=== PATIENT | male | born 1965 | race Caucasian/White ===

== ENCOUNTER 2016-07-24 18:21 | Emergency (ER) | payer BC ==
[2016-07-24 18:36] VITALS: BP 132/92
--- NOTE | 2016-07-24 19:12 | EDM.PDOC ---
ED HPI ENT - General Chief Complaint: ENT Problem Stated Complaint: FB IN EYE Time Seen by Provider: 07/24/16 18:57 Source of Information: Reports: Patient, RN notes reviewed - History of Present Illness INITIAL COMMENTS - FREE TEXT/NARRATIVE: 51-year-old male comes in with foreign body sensation left eye. He was in the [employer] parking lot and felt something blow into his eye. This resulted in foreign body sensation of the lateral aspect of his left eye. This appeared to be under his left upper eyelid. The discomfort was worse with blinking. During or after having his visual acuity checked here in the ED the discomfort completely went away. He does not wear contacts. No other injury or other unusual symptomatology. - Related Data Allergies/ADRs: Allergies Allergy/AdvReac Type Severity Reaction Status Date / Time No Known Allergies Allergy Verified 07/24/16 18:34 Home Meds: Home Meds Multivit-Min/FA/Lycopen/Lutein [Centrum Silver Men Tablet] 1 tab PO DAILY [History] [place]-3 Fatty Acids [Fish Oil] 1 tab PO DAILY 07/24/16 [History] Past Medical History Musculoskeletal History: Reports: Other (see below) Other Musculoskeletal History: ACL left Social & Family History - Tobacco Use Smoking Status *Q: Never Smoker Second Hand Smoke Exposure: No - Caffeine Use Caffeine Use: Reports: Soda - Recreational Drug Use Recreational Drug Use: No ED ROS ENT - Review of Systems Review Of Systems: See Below Constitutional: Denies: fever, chills HEENT: Reports: Eye pain (Left eye discomfort, foreign body sensation now better ) Respiratory: Reports: No Symptoms Cardiovascular: Reports: No symptoms GI/Abdominal: Denies: Nausea, Vomiting Musculoskeletal: Reports: no symptoms Skin: Denies: rash Neurological: Denies: Headache ED EXAM, ENT - Physical Exam Exam: See Below General Appearance: alert Eye Exam: bilateral eye: PERRL, other (no foreign body visible at time of my exam, cornea looks really good, no abrasion, sclera also is normal, no foreign body visible under either eye lid) Ears: normal external exam Nose: normal inspection Head: atraumatic. No: facial swelling Neck: supple Respiratory/Chest: no respiratory distress Neurological: alert Skin: Warm, Dry, Normal color, No rash Course - Vital Signs Last Recorded V/S: Last Vital Signs Temp 98.9 F 07/24/16 18:34 Pulse 78 07/24/16 18:34 Resp 18 07/24/16 18:34 BP 132/92 H 07/24/16 18:34 Pulse Ox 98 07/24/16 18:34 - Orders/Labs/Meds Meds: Medications Discontinued Medications Generic Name Dose Route Start Last Admin Trade Name Flora PRN Reason Stop Dose Admin Sodium Chloride 250 mls @ 999 mls/hr 07/24/16 20:00 07/24/16 20:45 Normal Saline .XX 999 mls/hr ASDIRECTED TD Administration Sodium Chloride Confirm 07/24/16 20:03 07/24/16 20:44 Normal Saline Administered 07/24/16 20:04 Not Given Dose 250 mls @ as directed .ROUTE .STK-MED ONE - Re-Assessments/Exams Free Text/Narrative Re-Assessment/Exam: 07/24/16 21:52 as noted there was no foreign body visible at the time of my exam, it may have washed out after arrival from tearing or otherwise so small not readily visible. we did irrigate his eye with 250 cc NS. Discharge instr. as documented. Departure - Departure Time of Disposition: 20:00 Disposition: Home, Self-Care 01 Condition: fair Clinical Impression: Foreign body of left eye Qualifiers: Encounter type: initial encounter Qualified Code(s): T15.92XA - Foreign body on external eye, part unspecified, left eye, initial encounter Instructions: Eye Foreign Body, [id number] Referrals: PCP,None [Primary Care Provider] - Forms: ED Department Discharge Additional Instructions: You may feel some irritation of the left eye intermittent for 12-24 hours. You may take Tylenol or ibuprofen if needed for discomfort. Your eye should be back to normal by Tuesday morning. If for some reason you are still having discomfort Tuesday followup with your regular eye doctor.
[2016-07-24] MEDS ORDERED: Sodium Chloride 0.9% 250 ML SCH (20:00)
[2016-07-24] MEDS ORDERED: Sodium Chloride 0.9% 250 ML ONE (20:03)
== END 2016-07-24 20:45 | disposition home or self-care (01) ==
LOC: JD.ED 18:21
DX: T15.92XA Foreign body on external eye, part unspecified, left eye, initial encounter (principal); X58.XXXA Exposure to other specified factors, initial encounter
CPT/HCPCS: 99283; J7050; 99282

== ENCOUNTER 2019-11-04 09:15 | Emergency (ER) | payer BC ==
[2019-11-04 09:27] VITALS: BP 125/82; PULSE 93
--- NOTE | 2019-11-04 10:13 | CT ---
Head CT Technique: Multiple axial sections through the brain were obtained. Intravenous contrast was not utilized. Comparison: No previous intracranial imaging. Findings: Ventricles along with basal cisterns and sulci over the convexities are mildly prominent. No abnormal parenchymal densities are seen. No evidence of intracranial hemorrhage. No midline shift or mass-effect is seen. Bone window settings were reviewed. Visualized paranasal sinuses and visualized mastoid sinuses show nothing acute. No acute calvarial abnormality is appreciated. Impression: 1. Mild generalized atrophy. 2. Nothing acute is appreciated on noncontrast head CT study. Diagnostic code #2 This report was dictated in MDT
[2019-11-04 11:07] LABS: HEMOGLOBIN A1C 10.9 % (4.50-6.20)
--- NOTE | 2019-11-04 11:57 | EDM.PDOC ---
ED HPI GENERAL MEDICAL PROBLEM - General Chief Complaint: Lower Extremity Injury/Pain Stated Complaint: RIGHT FOOT NUMBNESS Time Seen by Provider: 11/04/19 09:26 Source of Information: Reports: Patient, Family History Limitations: Reports: No Limitations - History of Present Illness INITIAL COMMENTS - FREE TEXT/NARRATIVE: The patient presents with right foot weakness. He said yesterday he was sitting in a lawn chair at a parade in [place] for 4 hours. When he sat up he had numbness in his right foot and lower leg. He also was not coordinated in the right foot. He has never had this happen before. He has no headache, trouble speaking, slurred speech, facial droop, or right arm weakness. He has no chest pain or shortness of breath. He has no abdominal pain, nausea or vomiting. He has no medical problems. He does not smoke. He has no history of hypertension, hypercholesterolemia or diabetes. Onset: Sudden Duration: Day(s): (Yesterday) Location: Reports: Lower Extremity, Right Quality: Reports: Other (numbness) Improves with: Reports: None Worsens with: Reports: None Associated Symptoms: Reports: No Other Symptoms - Related Data Allergies Allergy/AdvReac Type Severity Reaction Status Date / Time No Known Allergies Allergy Verified 11/04/19 09:27 Home Meds: Home Meds Multivit-Min/FA/Lycopen/Lutein [Centrum Silver Men Tablet] 1 tab PO DAILY 07/24/16 [History] [place]-3 Fatty Acids [Fish Oil] 1 tab PO DAILY 07/24/16 [History] metFORMIN [Glucophage XR] 500 mg PO WITHDINNER #60 tab.er 11/04/19 [Rx] Past Medical History Musculoskeletal History: Reports: Other (See Below) Other Musculoskeletal History: ACL left - Past Surgical History Musculoskeletal Surgical History: Reports: Other (See Below) Other Musculoskeletal Surgeries/Procedures:: back srugery on L3-L4 about 10 years ago 2009 possibly. pt unsure of what he had done, but it was something for his pinched nerve Social & Family History - Tobacco Use Smoking Status *Q: Never Smoker - Caffeine Use Caffeine Use: Reports: Soda - Recreational Drug Use Recreational Drug Use: No Review of Systems - Review of Systems Review Of Systems: See Below Constitutional: Reports: No Symptoms Eyes: Reports: No Symptoms Ears: Reports: No Symptoms Nose: Reports: No Symptoms Mouth/Throat: Reports: No Symptoms Respiratory: Reports: No Symptoms Cardiovascular: Reports: No Symptoms GI/Abdominal: Reports: No Symptoms Genitourinary: Reports: No Symptoms Musculoskeletal: Reports: No Symptoms Neurological: Reports: Numbness (rigth foot), Weakness (right foot) ED EXAM, GENERAL - Physical Exam Exam: See Below Exam Limited By: No Limitations General Appearance: Alert, No Apparent Distress Ears: Normal External Exam Nose: Normal Inspection Head: Atraumatic, Normocephalic Neck: Normal Inspection Respiratory/Chest: No Respiratory Distress, Lungs Clear, Normal Breath Sounds Cardiovascular: Regular Rate, Rhythm, No Edema, No Murmur GI/Abdominal: Soft, Non-Tender, No Organomegaly, No Mass Back Exam: Normal Inspection Extremities: Other (Numbness to the right foot. Mild weakness to the right foot. Slightly abnormal hell to hall with the right foot. No numbness or weakness to the right arm or face.) Course - Vital Signs Last Recorded V/S: Last Vital Signs Temp 97.7 F 11/04/19 09:22 Pulse 93 11/04/19 09:22 Resp 18 11/04/19 09:22 BP 125/82 11/04/19 09:22 Pulse Ox 99 11/04/19 09:22 - Orders/Labs/Meds Orders: Active Orders 24 hr Category Date Time Status Cardiac Monitoring [RC] . DIRECTED Care 11/04/19 09:47 Active EKG Documentation Completion [RC] STAT Care 11/04/19 09:47 Active Labs: Laboratory Tests 11/04/19 11/04/19 11/04/19 Range/Units 10:05 10:05 10:05 WBC 6.12 (4.23-9.07) K/mm3 RBC 5.13 (4.63-6.08) M/mm3 Hgb 14.8 (13.7-17.5) gm/dl Hct 41.8 (40.1-51.0) % MCV 81.5 (79.0-92.2) fl MCH 28.8 (25.7-32.2) pg MCHC 35.4 (32.2-35.5) g/dl RDW Std Deviation 38.9 (35.1-43.9) fL Plt Count 182 (163-337) K/mm3 MPV 10.9 (9.4-12.3) fl Neut % (Auto) 75.3 H (34.0-67.9) % Lymph % (Auto) 15.2 L (21.8-53.1) % [place] % (Auto) 7.7 (5.3-12.2) % Eos % (Auto) 0.8 (0.8-7.0) Baso % (Auto) 0.7 (0.1-1.2) % Neut # (Auto) 4.61 (1.78-5.38) K/mm3 Lymph # (Auto) 0.93 L (1.32-3.57) K/mm3 [place] # (Auto) 0.47 (0.30-0.82) K/mm3 Eos # (Auto) 0.05 (0.04-0.54) K/mm3 Baso # (Auto) 0.04 (0.01-0.08) K/mm3 PT 10.5 (9.7-12.0) SECONDS INR 0.96 APTT 26 (22-31) SECONDS Puncture Site ABG pH (7.35-7.45) ABG pCO2 (35.0-45.0) mmHg ABG pO2 (80.0-100.0) mmHg ABG HCO3 (22.0-26.0) meq/L ABG O2 Saturation (96.0-97.0) % ABG Base Excess (-2-2.0) A-a Gradient mmHg O2 Delivery Device Oxygen Flow Rate FiO2 (21.00-100.00) % Sodium 133 L (136-145) mEq/L Potassium 4.6 (3.5-5.1) mEq/L Chloride 96 L (98-107) mEq/L Carbon Dioxide 29 (21-32) mEq/L Anion Gap 12.6 (5-15) BUN 15 (7-18) mg/dL Creatinine 1.1 (0.7-1.3) mg/dL Est Cr Clr Drug Dosing 67.35 mL/min Estimated GFR (MDRD) > 60 (>60) mL/min BUN/Creatinine Ratio 13.6 L (14-18) Glucose 535 H* (74-106) mg/dL Hemoglobin A1c (4.50-6.20) % Serum Osmolality (280-300) mosm/kg Calcium 9.0 (8.5-10.1) mg/dL Total Bilirubin 1.1 H (0.2-1.0) mg/dL AST 13 L (15-37) U/L ALT 28 (16-63) U/L Alkaline Phosphatase 71 (46-116) U/L Troponin I < 0.017 (0.00-0.056) ng/mL Total Protein 6.9 (6.4-8.2) g/dl Albumin 3.8 (3.4-5.0) g/dl Globulin 3.1 gm/dL Albumin/Globulin Ratio 1.2 (1-2) Ketones (0.0-0.3) mM 11/04/19 11/04/19 11/04/19 Range/Units 10:05 10:05 10:05 WBC (4.23-9.07) K/mm3 RBC (4.63-6.08) M/mm3 Hgb (13.7-17.5) gm/dl Hct (40.1-51.0) % MCV (79.0-92.2) fl MCH (25.7-32.2) pg MCHC (32.2-35.5) g/dl RDW Std Deviation (35.1-43.9) fL Plt Count (163-337) K/mm3 MPV (9.4-12.3) fl Neut % (Auto) (34.0-67.9) % Lymph % (Auto) (21.8-53.1) % [place] % (Auto) (5.3-12.2) % Eos % (Auto) (0.8-7.0) Baso % (Auto) (0.1-1.2) % Neut # (Auto) (1.78-5.38) K/mm3 Lymph # (Auto) (1.32-3.57) K/mm3 [place] # (Auto) (0.30-0.82) K/mm3 Eos # (Auto) (0.04-0.54) K/mm3 Baso # (Auto) (0.01-0.08) K/mm3 PT (9.7-12.0) SECONDS INR APTT (22-31) SECONDS Puncture Site ABG pH (7.35-7.45) ABG pCO2 (35.0-45.0) mmHg ABG pO2 (80.0-100.0) mmHg ABG HCO3 (22.0-26.0) meq/L ABG O2 Saturation (96.0-97.0) % ABG Base Excess (-2-2.0) A-a Gradient mmHg O2 Delivery Device Oxygen Flow Rate FiO2 (21.00-100.00) % Sodium (136-145) mEq/L Potassium (3.5-5.1) mEq/L Chloride (98-107) mEq/L Carbon Dioxide (21-32) mEq/L Anion Gap (5-15) BUN (7-18) mg/dL Creatinine (0.7-1.3) mg/dL Est Cr Clr Drug Dosing mL/min Estimated GFR (MDRD) (>60) mL/min BUN/Creatinine Ratio (14-18) Glucose (74-106) mg/dL Hemoglobin A1c 10.90 H (4.50-6.20) % Serum Osmolality 310 H (280-300) mosm/kg Calcium (8.5-10.1) mg/dL Total Bilirubin (0.2-1.0) mg/dL AST (15-37) U/L ALT (16-63) U/L Alkaline Phosphatase (46-116) U/L Troponin I (0.00-0.056) ng/mL Total Protein (6.4-8.2) g/dl Albumin (3.4-5.0) g/dl Globulin gm/dL Albumin/Globulin Ratio (1-2) Ketones 0.61 (0.0-0.3) mM /09/18 Range/Units 11:23 WBC (4.23-9.07) K/mm3 RBC (4.63-6.08) M/mm3 Hgb (13.7-17.5) gm/dl Hct (40.1-51.0) % MCV (79.0-92.2) fl MCH (25.7-32.2) pg MCHC (32.2-35.5) g/dl RDW Std Deviation (35.1-43.9) fL Plt Count (163-337) K/mm3 MPV (9.4-12.3) fl Neut % (Auto) (34.0-67.9) % Lymph % (Auto) (21.8-53.1) % [place] % (Auto) (5.3-12.2) % Eos % (Auto) (0.8-7.0) Baso % (Auto) (0.1-1.2) % Neut # (Auto) (1.78-5.38) K/mm3 Lymph # (Auto) (1.32-3.57) K/mm3 [place] # (Auto) (0.30-0.82) K/mm3 Eos # (Auto) (0.04-0.54) K/mm3 Baso # (Auto) (0.01-0.08) K/mm3 PT (9.7-12.0) SECONDS INR APTT (22-31) SECONDS Puncture Site Lt radial ABG pH 7.41 (7.35-7.45) ABG pCO2 43.4 (35.0-45.0) mmHg ABG pO2 89.0 (80.0-100.0) mmHg ABG HCO3 26.6 H (22.0-26.0) meq/L ABG O2 Saturation 97.8 H (96.0-97.0) % ABG Base Excess 2.0 (-2-2.0) A-a Gradient 7 mmHg O2 Delivery Device Room air Oxygen Flow Rate 0.0 FiO2 21.00 (21.00-100.00) % Sodium (136-145) mEq/L Potassium (3.5-5.1) mEq/L Chloride (98-107) mEq/L Carbon Dioxide (21-32) mEq/L Anion Gap (5-15) BUN (7-18) mg/dL Creatinine (0.7-1.3) mg/dL Est Cr Clr Drug Dosing mL/min Estimated GFR (MDRD) (>60) mL/min BUN/Creatinine Ratio (14-18) Glucose (74-106) mg/dL Hemoglobin A1c (4.50-6.20) % Serum Osmolality (280-300) mosm/kg Calcium (8.5-10.1) mg/dL Total Bilirubin (0.2-1.0) mg/dL AST (15-37) U/L ALT (16-63) U/L Alkaline Phosphatase (46-116) U/L Troponin I (0.00-0.056) ng/mL Total Protein (6.4-8.2) g/dl Albumin (3.4-5.0) g/dl Globulin gm/dL Albumin/Globulin Ratio (1-2) Ketones (0.0-0.3) mM Meds: Medications Discontinued Medications Generic Name Dose Route Start Last Admin Trade Name Flora PRN Reason Stop Dose Admin Insulin Glargine 10 unit 11/04/19 12:50 11/04/19 14:30 Lantus SUBCUT 11/04/19 12:51 10 unit ONETIME ONE Administration - Re-Assessments/Exams Free Text/Narrative Re-Assessment/Exam: 11/04/19 12:[address] of his head, EKG and labs. His EKG shows a NSR with no acute changes. The CT of his head shows mild generalized atrophy. Nothing acute is appreciated on noncontrast head CT study. His CBC looks good. His PT and PTT look good. His Na was a little low at 133. His glucose was 535. I asked the patient if he ever had his blood sugar checked. He said about 3 years ago and it was normal. I asked him if he drinks lots of water and urinates a lot. He said not that I mention it he does. I ordered an Hgb A1C and it was 10.9. I also ordered a serum osmolality and it was 310. His ketones were 0.61. His troponin was negative. I called Dr Forte and we both agreed he does not need to be admitted. He recommended starting him on some low dose lantus at 10 units daily and also metformin. 11/04/19 14:24 I had Jessica one of our diabetes educators come see him. I will discharge him home. 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 Diabetes mellitus Qualifiers: Diabetes mellitus type: type 2 Diabetes mellitus rn long term care insulin use: without residential use Diabetes mellitus complication status: without complication Qualified Code(s): E11.9 - Type 2 diabetes mellitus without complications - Discharge Information *PRESCRIPTION DRUG MONITORING PROGRAM REVIEWED*: Not Applicable *COPY OF PRESCRIPTION DRUG MONITORING REPORT IN PATIENT LAMIN: Not Applicable Prescriptions: metFORMIN [Glucophage XR] 500 mg PO WITHDINNER #60 tab.er Referrals: Zen Mccall Jr, MD [Primary Care Provider] - 1 Week Forms: ED Department Discharge Additional Instructions: Drink plenty of fluids. Take the metformin 500mg by mouth at dinner for 1 week and then take 2 pills at dinner. Take the lantus 10 units subcutaneous daily. Check your blood sugars 3 times per day. Take 15 to 20 grams of sugar which is like a juice box if your blood sugar is below 70. Follow up with your doctor within a week. Please return if you are worse. Sepsis Event Note (ED) - Evaluation Sepsis Screening Result: No Definite Risk - Focused Exam Vital Signs: Vital Signs Temp Pulse Resp BP Pulse Ox 11/04/19 09:22 97.7 F 93 18 125/82 99 - My Orders Last 24 Hours: My Active Orders 11/04/19 09:47 Cardiac Monitoring [RC] . DIRECTED EKG Documentation Completion [RC] STAT - Assessment/Plan Last 24 Hours: My Active Orders 11/04/19 09:47 Cardiac Monitoring [RC] . DIRECTED EKG Documentation Completion [RC] STAT
[2019-11-04] MEDS ORDERED: Insulin Glarg,Human.Rec.Analog 100 Unit/ML SUBCUT ONE (12:50)
== END 2019-11-04 15:13 | disposition home or self-care (01) ==
LOC: JD.ED 09:15
DX: E11.42 Type 2 diabetes mellitus with diabetic polyneuropathy (principal); Z79.84 Long term (current) use of oral hypoglycemic drugs; Z79.899 Other long term (current) drug therapy
CPT/HCPCS: 36415; 36600; 70450; 80053; 82009; 82803; 83036; 83930; 84484; 85025; 85610; 85730; 93005; 99284; J1815